=== PATIENT | male | born 1965 | race Hispanic/Latino ===

== ENCOUNTER 2023-02-13 06:30 | Day surgery (SDC) | payer BC, OTHER ==
[2023-02-11 15:47] LABS: Absolute Lymphocytes (CBC) 0.9 K/uL (0.7-4.9); Hematocrit 50.9 % (39.6-49.0); Lymphocytes % 6.8 % (15.3-44.8); MCV 95.2 fL (80-100); MPV 8.5 fL (7.6-11.3); RBC Red Blood Cell Count 5.35 M/uL (4.33-5.43)
[2023-02-11 16:04] LABS: Potassium 3.9 mEq/L (3.5-5.1)
[2023-02-11 17:39] LABS: Protime INR 0.95
[2023-02-11 20:16] LABS: Blood Morphology Comment NOT SEEN (NOT SEEN); Platelet Estimate ADEQ; White Blood Cell Scan OK (OK)
--- NOTE | 2023-02-12 08:09 | EKG ---
Test Date: 2023-02-11 Test Time: 15:18:46 [employer] Coach: MAAME MEASUREMENT RESULTS: Intervals: Rate: 84 VT: QRSD: 72 QT: 312 QTc: 368 [place]: P: VT: QRS: 43 T: 77 INTERPRETIVE STATEMENTS: Atrial fibrillation Low voltage QRS Cannot rule out Anteroseptal infarct, age undetermined Abnormal ECG No previous ECG available for comparison Electronically Signed On 02-12-23 08:09:26 CDT by Jovanny Franco
[2023-02-13] MEDS ORDERED: MIDAZOLAM HCL 10 ML ONE (06:31)
[2023-02-13] MEDS ORDERED: FLUMAZENIL 0.1 MG/ML (5 mL VIAL) IV ONE (06:33)
[2023-02-13] MEDS ORDERED: LIDOCAINE VISCOUS 2% SOLN 15 ML UDC ONE (06:33)
[2023-02-13] MEDS ORDERED: HYDRALAZINE HCL 20 MG/ML VIAL ONE (06:33)
[2023-02-13] MEDS ORDERED: METOPROLOL TARTRATE 5 MG/5 ML INJ IV ONE (06:33)
[2023-02-13] MEDS ORDERED: PHENOL 1.4% ORAL SPRAY 180ML ONE (06:34)
[2023-02-13] MEDS ORDERED: ATROPINE SULF 1 MG/10 ML SYR IV ONE (06:34)
[2023-02-13] MEDS ORDERED: NA CHLORIDE 0.9% 500 ML ONE (06:52)
[2023-02-13] MEDS ORDERED: ENOXAPARIN 100 MG/ML SYR SQ ONE (08:27)
[2023-02-13] MEDS ORDERED: METOPROLOL TAR 25 MG TAB ONE (09:05)
--- NOTE | 2023-02-13 13:45 | EKG ---
Test Date: 2023-02-13 Test Time: 08:21:47 [employer] Officer: TW MEASUREMENT RESULTS: Intervals: Rate: 82 NM: 160 QRSD: 80 QT: 346 QTc: 404 [place]: P: 56 NM: 160 QRS: 4 T: 68 INTERPRETIVE STATEMENTS: Normal sinus rhythm Possible Left atrial enlargement Low voltage QRS Cannot rule out Anteroseptal infarct, age undetermined Abnormal ECG Compared to ECG 02/11/2023 15:18:46 Atrial fibrillation no longer present Myocardial infarct finding still present Electronically Signed On 02-13-23 13:44:46 CDT by Medhat Rodriguez
--- NOTE | 2023-02-16 07:40 | TEE ---
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 TRANSESOPHAGEAL ECHOCARDIOGRAM PROBE WAS INSERTED WITHOUT DIFFICULTY 2. NO LEFT ATRIAL APPENDAGE THOMBUS IS SEEN 3. NORMAL LEFT VENTRICULAR EJECTION FRACTION 55-60% TECHNOLOGIST: DREW ZUNIGA
== END 2023-02-13 09:55 | disposition home or self-care (01) ==
LOC: CCL 06:30
PROVIDERS: ATTEND Internal Medicine
PROC: 5A2204Z Restoration of Cardiac Rhythm, Single (ICD-10-PCS; principal; 2023-02-13)
DX: I48.91 Unspecified atrial fibrillation (principal); I10 Essential (primary) hypertension; Z79.899 Other long term (current) drug therapy
CPT/HCPCS: 93005 ×2; 93312; 85025; 80048; 36415; 85610; 85730; 92960; J2250; J1650; J7040; J0360; J0461